=== PATIENT | male | born 1950 | race Caucasian/White ===

== ENCOUNTER 2023-12-28 12:33 | Outpatient (CLI) | payer MEDICARE, SELFPAY ==
--- NOTE | ~2023-12-28 | PE_ITS ---
EXAMINATION: PET_PETPSMAST_PT DATE: 12/28/2023 15:02 INDICATION: Prostate cancer. TECHNIQUE: 9.329 mCi of piflufolastat F-18 was administered intravenously. Low dose computed tomograp hy (CT) images were acquired from the base of the brain to the proximal thighs for attenuation correc tion and anatomic localization. Automated exposure control was employed. Dose-length product (DLP) wa s 1002 mGy-cm. Positron emission tomography (PET) images were acquired in the same distribution. COMPARISON: None FINDINGS: Head/neck: There are no pathologically enlarged lymph nodes. Chest: There is mild mucosal thickening in the paranasal sinuses. No pleural effusion. The heart size is normal. There are coronary artery calcifications. No pericardial effusion. There is bilateral equine pharmacology technician ecomastia. Abdomen/pelvis/proximal thighs: The liver, spleen, pancreas, and left adrenal gland are normal. There is a 2.6 cm mass of fat in right adrenal gland, consistent with a myelolipoma. There is a 19 mm cyst in right kidney. Left kidney is normal. The prostate is moderately enlarged. There is increased acti vity in the prostate on the left with maximum SUV of 37.8. There is diffuse bladder wall thickening, likely secondary to chronic outlet obstruction. There are no pathologically enlarged lymph nodes. The re is calcified atherosclerosis of the aorta and many of the other arteries. There is no free intrape ritoneal fluid. There is a supraumbilical ventral hernia containing fat. There is no osseous malignan cy. IMPRESSION: 1. Moderately enlarged prostate with increased activity on the left, consistent with primary malignan cy. No evidence of metastatic disease. Reviewed, dictated and finalized at location A. OR ENGINEERING TECHNICIAN IMPRESSION: 1. Moderately enlarged prostate with increased activity on the left, consistent with primary malignancy. No evidence of metastatic disease.
== END 2023-12-28 12:34 | disposition home or self-care (01) ==
PROVIDERS: PCP Family Medicine; Visit Provider Urology
DX: C61 Malignant neoplasm of prostate (principal)
CPT/HCPCS: 78815; A9595

== ENCOUNTER 2024-01-27 09:14 | Outpatient (CLI) | payer MEDICARE, SELFPAY ==
--- NOTE | ~2024-01-27 | DEXA_ITS ---
Bone Density Report Name: CHRIS PARIKH Age: 73 Sex: Male Ethnicity: White Date of : 1950 Indication: screening for osteoporosis; cancer; Referring Provider: YIMI PAYNE Study: Bone densitometry was performed. Exam Date: January 27, 2024 Accession number: [id number] Bone Density: Region BMD T-score Z-score Classification AP Spine (L1, L2, L3) 1.062 -0.1 0.9 Normal Femoral Neck (Left) 0.703 -1.7 -0.3 Osteopenia Total Hip (Left) 1.041 0.1 0.9 Normal Femoral Neck (Right) 0.729 -1.5 -0.1 Osteopenia Total Hip (Right) 0.980 -0.3 0.5 Normal Total Hip Mean 1.011 -0.1 0.7 Normal World Health Organization criteria for BMD impression classify patients as: Normal (T-score at or above -1.0), Osteopenia (T-score between -1.0 and -2.5), or Osteoporosis (T-score at or below -2.5). 10-year Fracture Risk(1): Major Osteoporotic Fracture 6.9% Hip Fracture 2.0% Reported Risk Factors: [place] (), Neck BMD=0.703, BMI=30.6 (1) FRAX(R) Version 3.08. Fracture probability calculated for an untreated patient. Fracture probability may be lower if the patient has received treatment. Clinical Information Provided by Patient: Has the following medical conditions: Cancer, PROSTATE CA Patient maximum height was 71.5 No regular weight bearing exercise Drinks caffeinated beverages Impression: The patient has low bone mass, based on the Left Femoral Neck T-score. The patient has an estimated ten-year risk of hip fracture of 2% and an estimated ten-year risk of major fracture of 6.9%, based on the WHO FRAX algorithm. Discussion: BONE DENSITY IS LOW AT ONE OR MORE SKELETAL SITES. This patient's lowest T-score is low at one or more skeletal sites. It meets the World Health Organization's (WHO) criteria for ?low bone mass? (T-score between -1.0 and -2.5). The patient's 10-year risk of fracture as calculated by FRAX is less than the threshold where pharmacological therapy is recommended by the National Osteoporosis Foundation (NOF). However, all treatment decisions require clinical judgment and consideration of individual patient factors, including patient preferences, comorbidities, previous drug use, risk factors not captured in the FRAX model (e.g., frailty, falls, vitamin D deficiency, increased bone turnover, interval significant decline in bone density) and possible under or overestimation of fracture risk by FRAX. The patient should follow a healthful lifestyle (good nutrition with adequate calcium and vitamin D, and appropriate weight-bearing exercise). Follow-Up: Consider repeating this study in 2 to 3 years to reassess this patient's status, or sooner if there is some new clinical indication. Reported by: ADILENE on 01/27/2024 10:03:00 AM. Reviewed
== END 2024-01-27 09:15 ==
PROVIDERS: PCP Family Medicine; Visit Provider Urology
DX: M85.89 Other specified disorders of bone density and structure, multiple sites (principal); C61 Malignant neoplasm of prostate; Z79.818 Long term (current) use of other agents affecting estrogen receptors and estrogen levels; Z13.820 Encounter for screening for osteoporosis
CPT/HCPCS: 77080